=== PATIENT | male | born 1960 | race Hispanic/Latino ===

== ENCOUNTER 2025-06-07 07:53 | Outpatient (CLI) | payer BC ==
[2025-06-07 10:45] LABS: #Basophils 0.04 10x3/uL (0.0-0.2); #Eosinophils 0.09 10x3/uL (0.0-0.7); #Monocytes 0.69 10x3/uL (0.11-0.59); #Neutrophils 4.86 10x3/uL (1.40-6.50); %Basophils 0.6 % (0.0-1.0); %Eosinophils 1.3 % (0.0-10.0); %Lymphocytes 20.8 % (21.0-51.0); %Monocytes 9.6 % (0.0-10.0); %Neutrophils 67.4 % (42.0-75.0); Hematocrit 43.8 % (42.0-52.0); Hemoglobin 14.8 g/dL (14.0-18.0); Mean Corpuscular Hemoglobin 32.1 pg (27.0-31.0); Mean Corpuscular Volume 95.0 fL (78.0-98.0); Platelet Count 278 10x3/uL (130-400); Red Blood Cell (RBC) Count 4.61 mill/uL (4.70-6.10); White Blood Cell (WBC) Count 7.20 10x3/uL (4.8-10.8)
[2025-06-07 11:07] LABS: INR-International Normal Ratio 1.0; PTT 31.1 sec (22.9-36.1); Prothrombin Time 13.2 sec (12.0-14.7)
[2025-06-07 11:40] LABS: Anion Gap 13 mmol/L (10-20); BUN (Urea Nitrogen) 15 mg/dL (8.4-25.7); Calc. Creatinine Clearance 0 mL/min (70-130); Calcium 9.0 mg/dL (7.8-10.44); Carbon Dioxide 25 mmol/L (23-31); Chloride 103 mmol/L (98-107); Glucose 92 mg/dL (80-115); Potassium 3.7 mmol/L (3.5-5.1); Sodium 137 mmol/L (136-145)
[2025-06-07 12:33] LABS: Bacteria/HPF None Seen HPF (None Seen); Glucose, Urine (Dipstick) Normal (Negative); Leukocyte Negative Leu/uL (Negative); Protein, Urine (Dipstick) Negative (Neg-Trace); RBC/HPF 0-3 HPF (0-3); Specific Gravity, Urine 1.006 (1.002-1.036); WBC/HPF None Seen HPF (0-3)
== END 2025-06-07 07:54 | disposition home or self-care (01) ==
LOC: LABBT 07:53
PROVIDERS: ATTEND Urology
DX: Z01.818 Encounter for other preprocedural examination (principal); Z12.5 Encounter for screening for malignant neoplasm of prostate; R97.20 Elevated prostate specific antigen [PSA]; E78.5 Hyperlipidemia, unspecified; R35.0 Frequency of micturition; K40.90 Unilateral inguinal hernia, without obstruction or gangrene, not specified as recurrent; N40.0 Benign prostatic hyperplasia without lower urinary tract symptoms; N99.111 Postprocedural bulbous urethral stricture, male; Z80.42 Family history of malignant neoplasm of prostate; Z98.890 Other specified postprocedural states
CPT/HCPCS: 80048; 81001; 85025; 85610; 85730; 87086

== ENCOUNTER 2025-06-19 06:39 | Day surgery (SDC) | payer BC ==
[2025-06-07 08:20] VITALS: BMI 27.4
[2025-06-19] MEDS ORDERED: fentaNYL PF 100 MCG/2 ML SYRINGE ONE (07:20)
[2025-06-19] MEDS ORDERED: PROPOFOL 20 ML ONE (07:20)
[2025-06-19] MEDS ORDERED: Ondansetron PF 4 MG/2 ML Vial ONE (07:21)
[2025-06-19] MEDS ORDERED: Lidocaine 1% PF 5 ML VIAL ONE (07:21)
[2025-06-19] MEDS ORDERED: Rocuronium Bromide 10 MG/ML (10ML VIAL) ONE (07:21)
[2025-06-19] MEDS ORDERED: Ketorolac Tromethamine 30 MG (1 mL) VIAL ONE (07:44)
[2025-06-19] MEDS ORDERED: PHENYLEPHRINE-NS 100 MCG/ML 10 ML SYRINGE ONE (07:53)
[2025-06-19] MEDS ORDERED: Glycopyrrolate 0.2 MG/ML 5 ML SYRINGE ONE (08:06)
[2025-06-19] MEDS ORDERED: SUGAMMADEX SODIUM 200 MG/2 ML VIAL ONE ×2 (08:34→09:53)
[2025-06-19] MEDS ORDERED: LevoFLOXacin D5W 500 mg (100 mL) BAG ONE (08:38)
[2025-06-19] MEDS ORDERED: Hyoscyamine SL 0.125 MG TAB ONE (11:42)
== END 2025-06-19 16:20 | disposition home or self-care (01) ==
LOC: SDC 06:39
PROVIDERS: ATTEND Urology
PROC: 0VT08ZZ Resection of Prostate, Via Natural or Artificial Opening Endoscopic (ICD-10-PCS; principal; 2025-06-19)
PROC: 0T7D8DZ Dilation of Urethra with Intraluminal Device, Via Natural or Artificial Opening Endoscopic (ICD-10-PCS; principal; 2025-06-19)
DX: N40.0 Benign prostatic hyperplasia without lower urinary tract symptoms (principal); N35.912 Unspecified bulbous urethral stricture, male; R97.20 Elevated prostate specific antigen [PSA]; Z90.89 Acquired absence of other organs
CPT/HCPCS: 86850; 86900; 86901; 88307; A4333; J1100; J1885; J1956; J2405; J2704